=== PATIENT | male | born 1960 | race Caucasian/White ===

== ENCOUNTER 2022-03-11 14:01 | Emergency (ER) | payer OTHER, SELFPAY ==
[2022-03-11] VITALS (11 sets, daily range): BP systolic 93–107; BP diastolic 48–68; PULSE 85–93; RESP 14; TEMP 35.3; O2SAT 93–98; BMI 24.2
--- NOTE | 2022-03-11 14:07 | CRLHL7_ITS ---
For Patients: As a result of the Century Cures Act, medical imaging exams and procedure reports are released immediately into your electronic medical record. You may view this report before your referring provider. If you have questions, please contact your health care provider. INDICATION: Syncope TECHNIQUE: Single view chest. FINDINGS: The lungs are clear. The heart, mediastinum and pulmonary vessels are of normal size. There is no evidence of pleural disease. IMPRESSION: Negative chest. Dictated by Charline Tavarez MD @ 03/11/2022 3:31:23 PM (Electronically Signed)
--- NOTE | 2022-03-11 14:22 | ED.GENADULT ---
HPI - General Adult General Time Seen by Provider: 14: <Jovani Lopez MD - Last Filed: 03/12/22 12:17> Date Seen: 03/11/22 <Jovani Lopez MD - Last Filed: 03/12/22 12:17> Chief complaint: Nausea/Vomiting <Jovani Lopez MD - Last Filed: 03/12/22 12:17> Stated complaint: Flu like symptoms, almost passed out while driving <Jovani Lopez MD - Last Filed: 03/12/22 12:17> Time Seen by Provider: 03/11/22 14:03 <Jovani Lopez MD - Last Filed: 03/12/22 12:17> Source: patient <Jovani Lopez MD - Last Filed: 03/12/22 12:17> Mode of arrival: wheelchair <Jovani Lopez MD - Last Filed: 03/12/22 12:17> Limitations: physical limitation <Jovani Lopez MD - Last Filed: 03/12/22 12:17> History of Present Illness HPI narrative: Patient is a 62 year white male who is a type 2 diabetic, currently on glipizide and metformin. The patient was driving with his , said he felt sick in his stomach onset about noon. He was well up until that time. He does report that he ate anything unusual or had any other kind of exposures. He does report he has been very upset his stomach and he is vomiting and he had syncopal spell, loss control of bowel, did not have any postictal phase or seizure activity. He has been slightly pale since he denies any chest pain, shortness of breath, recent illness or cough. He has been vaccinated for COVID. He has had no chest pain, no leg swelling or edema. <Jovani Lopez MD - Last Filed: 03/12/22 12:17> Related Data Allergies/adverse reactions: Allergies Allergy/AdvReac Type Severity Reaction Status Date / Time sitagliptin [From Januvia] Allergy Verified 03/11/22 14:10 <Jovani Lopez MD - Last Filed: 03/12/22 12:17> Review of Systems Status of ROS: Reports: 10 or more systems reviewed and unremarkable except as noted in History and below <Jovani Lopez MD - Last Filed: 03/12/22 12:17> [facility] Social History: Social History Smoking Status: Never smoker Do you use any of these nicotine containing products: None Second hand tobacco smoke exposure: No How often do you have a drink containing alcohol: monthly or less How many standard drinks containing alcohol do you have on a typical day: 1 or 2 How often do you have six or more drinks on one occasion: Never AUDIT-C Alcohol total score: 1 Non-prescribed substance use: denies use service: No <Jovani Lopez MD - Last Filed: 03/12/22 12:17> Exam Narrative: Exam Narrative: Objective: Patient's vital signs unremarkable he is alert but he is pale HEENT is unremarkable pupils react to light extra pills intact mouth is dry Neck is supple Chest is clear Heart rhythm regular 2/6 systolic ejection murmur, occasional ectopic beat. Abdomen mildly tender over his epigastrium no rebound no peritonitis Extremities are no edema Neurologic nonfocal Skin is perfuse well in the extremities, warm and dry <Jovani Lopez MD - Last Filed: 03/12/22 12:17> Const: Vital Signs, click to edit/add: Vital Signs - 24 hr 03/11/22 14:10 03/11/22 14:20 03/11/22 14:47 Temperature 95.6 F L Pulse Rate 89 Pulse Rate [Pulse Oximeter] 93 Respiratory Rate Blood Pressure Blood Pressure [Le ft Upper Arm] 106/65 Pulse Oximetry 98 97 97 Oxygen Delivery Me thod Room Air 03/11/22 14:49 03/11/22 15:02 03/11/22 15:32 Temperature Pulse Rate 89 90 Pulse Rate [Pulse Oximeter] Respiratory Rate Blood Pressure 93/58 L 104/57 L 100/61 Blood Pressure [Le ft Upper Arm] Pulse Oximetry 97 96 Oxygen Delivery Me thod 03/11/22 16:02 03/11/22 17:05 03/11/22 16:03 Temperature 95.6 F L Pulse Rate 89 88 Pulse Rate [Pulse Oximeter] 93 Respiratory Rate 14 Blood Pressure 106/48 L Blood Pressure [Le ft Upper Arm] 106/65 Pulse Oximetry 93 97 Oxygen Delivery Me thod Room Air 03/11/22 16:32 03/11/22 17:02 Temperature Pulse Rate 85 Pulse Rate [Pulse Oximeter] Respiratory Rate 14 Blood Pressure 107/68 104/64 Blood Pressure [Le ft Upper Arm] Pulse Oximetry 95 Oxygen Delivery [facility] <Jovani Lopez MD - Last Filed: 03/12/22 12:17> Vital Signs, click to edit/add: Vital Signs - 24 hr 03/11/22 14:10 03/11/22 14:20 03/11/22 14:47 Temperature 95.6 F L Pulse Rate 89 Pulse Rate [Pulse Oximeter] 93 Respiratory Rate Blood Pressure Blood Pressure [Le ft Upper Arm] 106/65 Pulse Oximetry 98 97 97 Oxygen Delivery [facility] Room Air 03/11/22 14:49 03/11/22 15:02 03/11/22 15:32 Temperature Pulse Rate 89 90 Pulse Rate [Pulse Oximeter] Respiratory Rate Blood Pressure 93/58 L 104/57 L 100/61 Blood Pressure [Le ft Upper Arm] Pulse Oximetry 97 96 Oxygen Delivery Md thod 03/11/22 16:02 03/11/22 17:05 03/11/22 16:03 Temperature 95.6 F L Pulse Rate 89 88 Pulse Rate [Pulse Oximeter] 93 Respiratory Rate 14 Blood Pressure 106/48 L Blood Pressure [Le ft Upper Arm] 106/65 Pulse Oximetry 93 97 Oxygen Delivery [facility] Room Air 03/11/22 16:32 03/11/22 17:02 Temperature Pulse Rate 85 Pulse Rate [Pulse Oximeter] Respiratory Rate 14 Blood Pressure 107/68 104/64 Blood Pressure [Le ft Upper Arm] Pulse Oximetry 95 Oxygen Delivery [facility] <Jac Schofield MD - Last Filed: 03/11/22 16:51> Course Reevaluation(s) Reevaluation #1: Care discussed with Dr. Lopez, prior records reviewed. Briefly this is a 62-year-old male with history of diabetes who presents with abrupt onset nausea, epigastric pain, vomiting, and lightheadedness. Labs independently interpreted by me demonstrate leukocytosis which may be from the margin, elevated D-dimer to as well as hyperglycemia but no anion gap acidosis to suggest DKA. Hepatic function panel is normal, troponin negative, BNP normal. Urinalysis with trace leukocyte esterase, few bacteria, cells. COVID and influenza are negative. CT scan chest independently interpreted by me does not demonstrate any acute intrathoracic findings including pulmonary some or infiltrate. CT scan of the abdomen pelvis not show any acute obstruction or inflammatory change, lipase is ordered. <Jac Schofield MD - Last Filed: 03/11/22 16:51> Time: 16:00 <Jac Schofield MD - Last Filed: 03/11/22 16:51> Reevaluation #2: Radiology interpretation of CT scans reviewed, fluid-filled colon fluid-filled small-bowel related to coloenteritis which certainly could cause of patient's symptoms of abdominal pain, nausea. Would expect some diarrhea in the next 24 hours as well. Continue usual medications of follow-up care. <Jac Schofield MD - Last Filed: 03/11/22 16:51> Time: 16:50 <Jac Schofield MD - Last Filed: 03/11/22 16:51> Vital Signs Vital signs: Initial Vital Signs Temperature 95.6 F L 03/11/22 14:10 Temperature Source Temporal Artery Scan 03/11/22 14:10 Pulse Rate 93 03/11/22 14:10 Pulse Rhythm 03/11/22 14:10 Blood Pressure 106/65 03/11/22 14:10 Blood Pressure Mean 78 03/11/22 14:10 Blood Pressure Position Supine 03/11/22 14:10 Pulse Oximetry 98 03/11/22 14:10 Oxygen Delivery Method 03/11/22 14:10 Vital Signs Temperature 95.6 F L 03/11/22 14:10 Pulse Rate 93 03/11/22 14:10 Blood Pressure 106/65 03/11/22 14:10 Pulse Oximetry 98 03/11/22 14:10 Oxygen Delivery Method 03/11/22 14:10 Temperature 95.6 F L 03/11/22 17:05 Pulse Rate 93 03/11/22 17:05 Respiratory Rate 14 03/11/22 17:05 Blood Pressure 106/65 03/11/22 17:05 Pulse Oximetry 95 03/11/22 17:02 Oxygen Delivery Method 03/11/22 16:02 <Jovani Lopez MD - Last Filed: 03/12/22 12:17> Initial Vital Signs Temperature 95.6 F L 03/11/22 14:10 Temperature Source Temporal Artery Scan 03/11/22 14:10 Pulse Rate 93 03/11/22 14:10 Pulse Rhythm 03/11/22 14:10 Blood Pressure 106/65 03/11/22 14:10 Blood Pressure Mean 78 03/11/22 14:10 Blood Pressure Position Supine 03/11/22 14:10 Pulse Oximetry 98 03/11/22 14:10 Oxygen Delivery Method 03/11/22 14:10 Vital Signs Temperature 95.6 F L 03/11/22 14:10 Pulse Rate 93 03/11/22 14:10 Blood Pressure 106/65 03/11/22 14:10 Pulse Oximetry 98 03/11/22 14:10 Oxygen Delivery Method 03/11/22 14:10 Temperature 95.6 F L 03/11/22 17:05 Pulse Rate 93 03/11/22 17:05 Respiratory Rate 14 03/11/22 17:05 Blood Pressure 106/65 03/11/22 17:05 Pulse Oximetry 95 03/11/22 17:02 Oxygen Delivery Method 03/11/22 16:02 <Jac Schofield MD - Last Filed: 03/11/22 16:51> Medical Decision Making MDM Narrative Medical decision making narrative: 62-year-old white male diabetic with a likely vasovagal syncopal episode due to GI upset and nausea and vomiting. Patient appears to have a benign abdomen, will check his labs, IV fluid, IV Zofran. Disposition pending his labs and response to the medications and fluid. Suspect he has a GI illness that has caused his vasovagal syncope. He does not give symptoms of his seizure. He is diabetic so I think getting an EKG in ruling out coronary issues would be appropriate, will put him on a dragsaw operator as well. Addendum: The patient's blood sugars over 400 on a venous sample, patient will be given 5 units of subcu insulin, his troponin is 0, his D-dimer is elevated 2.9, therefore a chest CT with contrast will be done, he will do an abdominal pelvic without contrast given he had this abdominal pain today. The patient will hold onto his metformin for [address] scan. <Jovani Lopez MD - Last Filed: 03/12/22 12:17> Lab Data Labs: Lab Results 03/11/22 03/11/22 03/11/22 Range/Units 14:25 14:25 14:25 WBC 15.75 H (4.50-11.00) K/uL RBC 6.01 H (4.30-5.90) m/uL Hgb 17.3 (13.5-17.5) gm/dL Hct 49.1 (37.0-53.0) % MCV 82 (80-100) fL MCH 29 (26-34) pg MCHC 35 (32-36) gm/dL RDW Coeff of Diane 12.5 (11.5-15.5) % Plt Count 268 (140-440) K/uL Neut % (Auto) 86.3 H (42.0-72.0) % Lymph % (Auto) 6.8 L (20-44) % [place] % (Auto) 5.5 (0.0-11.0) % Eos % (Auto) 0.1 (0.0-7.0) % Baso % (Auto) 0.1 (0.0-3.0) % Neut # (Auto) 13.60 H (1.7-7.0) K/uL Lymph # (Auto) 1.10 (0.90-2.90) K/uL [place] # (Auto) 0.90 (0.00-0.90) K/UL Eos # (Auto) 0.00 (0.00-0.50) K/uL Baso # (Auto) 0.00 (0.00-0.30) K/uL D-Dimer Quant (PE/DVT) 0.90 H (0.00-0.50) ug/ml Sodium 134 L (135-149) mmol/L Potassium 4.4 (3.6-5.1) mmol/L Chloride 97 (96-114) mmol/L Carbon Dioxide 23 (20-32) mmol/L BUN 25 (7-30) mg/dL Creatinine 1.4 (0.5-1.5) mg/dL Estimated Creat Clear 48.10 Estimated GFR 56 ml/min Glucose 406 H* (60-115) mg/dL Calcium 9.5 (8.4-10.6) mg/dL Total Bilirubin 0.8 (0.1-1.5) mg/dL Direct Bilirubin 0.2 (0.0-0.5) mg/dL AST 30 (12-35) U/L ALT 27 (4-50) U/L Alkaline Phosphatase 79 (40-150) U/L Troponin I (0.01-0.04) ng/mL C-Reactive Protein < 0.5 L (0.5-1.0) mg/dL NT-Pro-B Natriuret Pep < 20 pg/mL Total Protein 8.3 (6.0-8.3) g/dL Albumin 5.1 H (3.3-5.0) g/dL Lipase (23-300) U/L Urine Color (Yellow) Urine Appearance (Clear) Urine pH (5.0-8.5) Ur Specific [place] (1.000-1.030) Urine Protein (Negative) Urine Glucose (UA) (Negative) Urine Ketones (Negative) Urine Blood (Negative) Urine Nitrite (Negative) Urine Bilirubin (Negative) Urine Urobilinogen (0.2-1.0) Ur Leukocyte Esterase (Negative) Urine RBC (0-2) Urine WBC (0-5) Ur Squamous Epith Cells (None-Few) Urine Bacteria (None) SARS-CoV-2 (PCR) (Negative) Influenza Type A (PCR) (Negative) Influenza Type B (PCR) (Negative) RSV (PCR) (Negative) POC Troponin I (0.01-0.04) ng/ml 03/11/22 03/11/22 03/11/22 Range/Units 14:25 14:27 15:25 WBC (4.50-11.00) K/uL RBC (4.30-5.90) m/uL Hgb (13.5-17.5) gm/dL Hct (37.0-53.0) % MCV (80-100) fL MCH (26-34) pg MCHC (32-36) gm/dL RDW Coeff of Diane (11.5-15.5) % Plt Count (140-440) K/uL Neut % (Auto) (42.0-72.0) % Lymph % (Auto) (20-44) % [place] % (Auto) (0.0-11.0) % Eos % (Auto) (0.0-7.0) % Baso % (Auto) (0.0-3.0) % Neut # (Auto) (1.7-7.0) K/uL Lymph # (Auto) (0.90-2.90) K/uL [place] # (Auto) (0.00-0.90) K/UL Eos # (Auto) (0.00-0.50) K/uL Baso # (Auto) (0.00-0.30) K/uL D-Dimer Quant (PE/DVT) (0.00-0.50) ug/ml Sodium (135-149) mmol/L Potassium (3.6-5.1) mmol/L Chloride (96-114) mmol/L Carbon Dioxide (20-32) mmol/L BUN (7-30) mg/dL Creatinine (0.5-1.5) mg/dL Estimated Creat Clear Estimated GFR ml/min Glucose (60-115) mg/dL Calcium (8.4-10.6) mg/dL Total Bilirubin (0.1-1.5) mg/dL Direct Bilirubin (0.0-0.5) mg/dL AST (12-35) U/L ALT (4-50) U/L Alkaline Phosphatase (40-150) U/L Troponin I (0.01-0.04) ng/mL C-Reactive Protein (0.5-1.0) mg/dL NT-Pro-B Natriuret Pep pg/mL Total Protein (6.0-8.3) g/dL Albumin (3.3-5.0) g/dL Lipase (23-300) U/L Urine Color Yellow (Yellow) Urine Appearance Slightly Cloudy A (Clear) Urine pH 5.5 (5.0-8.5) Ur Specific [place] 1.020 (1.000-1.030) Urine Protein Negative (Negative) Urine Glucose (UA) 1+ A (Negative) Urine Ketones Trace A (Negative) Urine Blood Negative (Negative) Urine Nitrite Negative (Negative) Urine Bilirubin Negative (Negative) Urine Urobilinogen 0.2 (0.2-1.0) Ur Leukocyte Esterase Trace A (Negative) Urine RBC 0-2 (0-2) Urine WBC 2-5 (0-5) Ur Squamous Epith Cells None (None-Few) Urine Bacteria Few A (None) SARS-CoV-2 (PCR) Negative SARS-CoV-2 (Negative) Influenza Type A (PCR) Negative PCR FLU A (Negative) Influenza Type B (PCR) Negative PCR FLU B (Negative) RSV (PCR) Negative PCR RSV (Negative) POC Troponin I 0.00 L (0.01-0.04) ng/ml 03/11/22 Range/Units 16:10 WBC (4.50-11.00) K/uL RBC (4.30-5.90) m/uL Hgb (13.5-17.5) gm/dL Hct (37.0-53.0) % MCV (80-100) fL MCH (26-34) pg MCHC (32-36) gm/dL RDW Coeff of Diane (11.5-15.5) % Plt Count (140-440) K/uL Neut % (Auto) (42.0-72.0) % Lymph % (Auto) (20-44) % [place] % (Auto) (0.0-11.0) % Eos % (Auto) (0.0-7.0) % Baso % (Auto) (0.0-3.0) % Neut # (Auto) (1.7-7.0) K/uL Lymph # (Auto) (0.90-2.90) K/uL [place] # (Auto) (0.00-0.90) K/UL Eos # (Auto) (0.00-0.50) K/uL Baso # (Auto) (0.00-0.30) K/uL D-Dimer Quant (PE/DVT) (0.00-0.50) ug/ml Sodium (135-149) mmol/L Potassium (3.6-5.1) mmol/L Chloride (96-114) mmol/L Carbon Dioxide (20-32) mmol/L BUN (7-30) mg/dL Creatinine (0.5-1.5) mg/dL Estimated Creat Clear Estimated GFR ml/min Glucose (60-115) mg/dL Calcium (8.4-10.6) mg/dL Total Bilirubin (0.1-1.5) mg/dL Direct Bilirubin (0.0-0.5) mg/dL AST (12-35) U/L ALT (4-50) U/L Alkaline Phosphatase (40-150) U/L Troponin I < 0.01 L (0.01-0.04) ng/mL C-Reactive Protein (0.5-1.0) mg/dL NT-Pro-B Natriuret Pep pg/mL Total Protein (6.0-8.3) g/dL Albumin (3.3-5.0) g/dL Lipase 14 L (23-300) U/L Urine Color (Yellow) Urine Appearance (Clear) Urine pH (5.0-8.5) Ur Specific [place] (1.000-1.030) Urine Protein (Negative) Urine Glucose (UA) (Negative) Urine Ketones (Negative) Urine Blood (Negative) Urine Nitrite (Negative) Urine Bilirubin (Negative) Urine Urobilinogen (0.2-1.0) Ur Leukocyte Esterase (Negative) Urine RBC (0-2) Urine WBC (0-5) Ur Squamous Epith Cells (None-Few) Urine Bacteria (None) SARS-CoV-2 (PCR) (Negative) Influenza Type A (PCR) (Negative) Influenza Type B (PCR) (Negative) RSV (PCR) (Negative) POC Troponin I (0.01-0.04) ng/ml <Jovani Lopez MD - Last Filed: 03/12/22 12:17> Lab Results 03/11/22 03/11/22 03/11/22 Range/Units 14:25 14:25 14:25 WBC 15.75 H (4.50-11.00) K/uL RBC 6.01 H (4.30-5.90) m/uL Hgb 17.3 (13.5-17.5) gm/dL Hct 49.1 (37.0-53.0) % MCV 82 (80-100) fL MCH 29 (26-34) pg MCHC 35 (32-36) gm/dL RDW Coeff of Diane 12.5 (11.5-15.5) % Plt Count 268 (140-440) K/uL Neut % (Auto) 86.3 H (42.0-72.0) % Lymph % (Auto) 6.8 L (20-44) % [place] % (Auto) 5.5 (0.0-11.0) % Eos % (Auto) 0.1 (0.0-7.0) % Baso % (Auto) 0.1 (0.0-3.0) % Neut # (Auto) 13.60 H (1.7-7.0) K/uL Lymph # (Auto) 1.10 (0.90-2.90) K/uL [place] # (Auto) 0.90 (0.00-0.90) K/UL Eos # (Auto) 0.00 (0.00-0.50) K/uL Baso # (Auto) 0.00 (0.00-0.30) K/uL D-Dimer Quant (PE/DVT) 0.90 H (0.00-0.50) ug/ml Sodium 134 L (135-149) mmol/L Potassium 4.4 (3.6-5.1) mmol/L Chloride 97 (96-114) mmol/L Carbon Dioxide 23 (20-32) mmol/L BUN 25 (7-30) mg/dL Creatinine 1.4 (0.5-1.5) mg/dL Estimated Creat Clear 48.10 Estimated GFR 56 ml/min Glucose 406 H* (60-115) mg/dL Calcium 9.5 (8.4-10.6) mg/dL Total Bilirubin 0.8 (0.1-1.5) mg/dL Direct Bilirubin 0.2 (0.0-0.5) mg/dL AST 30 (12-35) U/L ALT 27 (4-50) U/L Alkaline Phosphatase 79 (40-150) U/L Troponin I (0.01-0.04) ng/mL C-Reactive Protein < 0.5 L (0.5-1.0) mg/dL NT-Pro-B Natriuret Pep < 20 pg/mL Total Protein 8.3 (6.0-8.3) g/dL Albumin 5.1 H (3.3-5.0) g/dL Lipase (23-300) U/L Urine Color (Yellow) Urine Appearance (Clear) Urine pH (5.0-8.5) Ur Specific [place] (1.000-1.030) Urine Protein (Negative) Urine Glucose (UA) (Negative) Urine Ketones (Negative) Urine Blood (Negative) Urine Nitrite (Negative) Urine Bilirubin (Negative) Urine Urobilinogen (0.2-1.0) Ur Leukocyte Esterase (Negative) Urine RBC (0-2) Urine WBC (0-5) Ur Squamous Epith Cells (None-Few) Urine Bacteria (None) SARS-CoV-2 (PCR) (Negative) Influenza Type A (PCR) (Negative) Influenza Type B (PCR) (Negative) RSV (PCR) (Negative) POC Troponin I (0.01-0.04) ng/ml 03/11/22 03/11/22 03/11/22 Range/Units 14:25 14:27 15:25 WBC (4.50-11.00) K/uL RBC (4.30-5.90) m/uL Hgb (13.5-17.5) gm/dL Hct (37.0-53.0) % MCV (80-100) fL MCH (26-34) pg MCHC (32-36) gm/dL RDW Coeff of Diane (11.5-15.5) % Plt Count (140-440) K/uL Neut % (Auto) (42.0-72.0) % Lymph % (Auto) (20-44) % [place] % (Auto) (0.0-11.0) % Eos % (Auto) (0.0-7.0) % Baso % (Auto) (0.0-3.0) % Neut # (Auto) (1.7-7.0) K/uL Lymph # (Auto) (0.90-2.90) K/uL [place] # (Auto) (0.00-0.90) K/UL Eos # (Auto) (0.00-0.50) K/uL Baso # (Auto) (0.00-0.30) K/uL D-Dimer Quant (PE/DVT) (0.00-0.50) ug/ml Sodium (135-149) mmol/L Potassium (3.6-5.1) mmol/L Chloride (96-114) mmol/L Carbon Dioxide (20-32) mmol/L BUN (7-30) mg/dL Creatinine (0.5-1.5) mg/dL Estimated Creat Clear Estimated GFR ml/min Glucose (60-115) mg/dL Calcium (8.4-10.6) mg/dL Total Bilirubin (0.1-1.5) mg/dL Direct Bilirubin (0.0-0.5) mg/dL AST (12-35) U/L ALT (4-50) U/L Alkaline Phosphatase (40-150) U/L Troponin I (0.01-0.04) ng/mL C-Reactive Protein (0.5-1.0) mg/dL NT-Pro-B Natriuret Pep pg/mL Total Protein (6.0-8.3) g/dL Albumin (3.3-5.0) g/dL Lipase (23-300) U/L Urine Color Yellow (Yellow) Urine Appearance Slightly Cloudy A (Clear) Urine pH 5.5 (5.0-8.5) Ur Specific [place] 1.020 (1.000-1.030) Urine Protein Negative (Negative) Urine Glucose (UA) 1+ A (Negative) Urine Ketones Trace A (Negative) Urine Blood Negative (Negative) Urine Nitrite Negative (Negative) Urine Bilirubin Negative (Negative) Urine Urobilinogen 0.2 (0.2-1.0) Ur Leukocyte Esterase Trace A (Negative) Urine RBC 0-2 (0-2) Urine WBC 2-5 (0-5) Ur Squamous Epith Cells None (None-Few) Urine Bacteria Few A (None) SARS-CoV-2 (PCR) Negative SARS-CoV-2 (Negative) Influenza Type A (PCR) Negative PCR FLU A (Negative) Influenza Type B (PCR) Negative PCR FLU B (Negative) RSV (PCR) Negative PCR RSV (Negative) POC Troponin I 0.00 L (0.01-0.04) ng/ml 03/11/22 Range/Units 16:10 WBC (4.50-11.00) K/uL RBC (4.30-5.90) m/uL Hgb (13.5-17.5) gm/dL Hct (37.0-53.0) % MCV (80-100) fL MCH (26-34) pg MCHC (32-36) gm/dL RDW Coeff of Diane (11.5-15.5) % Plt Count (140-440) K/uL Neut % (Auto) (42.0-72.0) % Lymph % (Auto) (20-44) % [place] % (Auto) (0.0-11.0) % Eos % (Auto) (0.0-7.0) % Baso % (Auto) (0.0-3.0) % Neut # (Auto) (1.7-7.0) K/uL Lymph # (Auto) (0.90-2.90) K/uL [place] # (Auto) (0.00-0.90) K/UL Eos # (Auto) (0.00-0.50) K/uL Baso # (Auto) (0.00-0.30) K/uL D-Dimer Quant (PE/DVT) (0.00-0.50) ug/ml Sodium (135-149) mmol/L Potassium (3.6-5.1) mmol/L Chloride (96-114) mmol/L Carbon Dioxide (20-32) mmol/L BUN (7-30) mg/dL Creatinine (0.5-1.5) mg/dL Estimated Creat Clear Estimated GFR ml/min Glucose (60-115) mg/dL Calcium (8.4-10.6) mg/dL Total Bilirubin (0.1-1.5) mg/dL Direct Bilirubin (0.0-0.5) mg/dL AST (12-35) U/L ALT (4-50) U/L Alkaline Phosphatase (40-150) U/L Troponin I < 0.01 L (0.01-0.04) ng/mL C-Reactive Protein (0.5-1.0) mg/dL NT-Pro-B Natriuret Pep pg/mL Total Protein (6.0-8.3) g/dL Albumin (3.3-5.0) g/dL Lipase 14 L (23-300) U/L Urine Color (Yellow) Urine Appearance (Clear) Urine pH (5.0-8.5) Ur Specific [place] (1.000-1.030) Urine Protein (Negative) Urine Glucose (UA) (Negative) Urine Ketones (Negative) Urine Blood (Negative) Urine Nitrite (Negative) Urine Bilirubin (Negative) Urine Urobilinogen (0.2-1.0) Ur Leukocyte Esterase (Negative) Urine RBC (0-2) Urine WBC (0-5) Ur Squamous Epith Cells (None-Few) Urine Bacteria (None) SARS-CoV-2 (PCR) (Negative) Influenza Type A (PCR) (Negative) Influenza Type B (PCR) (Negative) RSV (PCR) (Negative) POC Troponin I (0.01-0.04) ng/ml <Jac Schofield MD - Last Filed: 03/11/22 16:51> Discharge Plan Discharge Clinical Impression: Syncope, Nausea and vomiting <Jovani Lopez MD - Last Filed: 03/12/22 12:17> Patient Disposition: Home w/ Parent or Adult <Jovani Lopez MD - Last Filed: 03/12/22 12:17> Condition: Improved <Jovani Lopez MD - Last Filed: 03/12/22 12:17> Instructions: Acute Abdominal Pain (DC), Near Syncope (ED) <Jovani Lopez MD - Last Filed: 03/12/22 12:17> Additional Instructions: Rest, light activity, would hold the metformin for least 24 hours, then may restart. He can continue his glipizide. Continue to monitor 3 to 4 times a day blood sugars, update regular doctor in the next 48 hours. Adequate fluid intake. No driving for the next couple of days until follow-up with primary care. <Jovani Lopez MD - Last Filed: 03/12/22 12:17> Activity Level: Light activity <Jovani Lopez MD - Last Filed: 03/12/22 12:17> Light activity <Jac Schofield MD - Last Filed: 03/11/22 16:51> Discharge Diet: Regular <Jovani Lopez MD - Last Filed: 03/12/22 12:17> Regular <Jac Schofield MD - Last Filed: 03/11/22 16:51> Follow Up/Referrals: Beto Kim MD [Primary Care Provider] - <Jovani Lopez MD - Last Filed: 03/12/22 12:17> Stand Alone Forms: [facility] Info Instructions <Jovani Lopez MD - Last Filed: 03/12/22 12:17>
[2022-03-11] MEDS: 0.9 % SODIUM CHLORIDE 1000 ml 1,000 ML 6000 ML IV (14:25)
[2022-03-11] MEDS: ONDANSETRON 2 MG/ML inj 4 MG IVP (14:28)
[2022-03-11 14:39] LABS: Basophils Percent Auto 0.1 % (0.0-3.0); Eosinophils Percent Auto 0.1 % (0.0-7.0); Hematocrit 49.1 % (37.0-53.0); Hemoglobin* 17.3 gm/dL (13.5-17.5); Immature Granulocytes Pct Auto 1.2 %; Lymphocytes Percent Auto 6.8 % (20-44); Mean Corpuscular HGB Conc 35 gm/dL (32-36); Mean Corpuscular Hemoglobin 29 pg (26-34); Mean Corpuscular Volume 82 fL (80-100); Monocytes Percent Auto 5.5 % (0.0-11.0); Neutrophils Percent Auto 86.3 % (42.0-72.0); Platelet Count* 268 K/uL (140-440); RDW Coefficient of Variation % 12.5 % (11.5-15.5); Red Blood Count 6.01 m/uL (4.30-5.90); White Blood Count* 15.75 K/uL (4.50-11.00)
[2022-03-11 14:47] LABS: Slide Review Reflex No
[2022-03-11 14:54] LABS: Albumin* 5.1 g/dL (3.3-5.0); Chloride* 97 mmol/L (96-114); Sodium* 134 mmol/L (135-149)
[2022-03-11 14:55] LABS: Potassium* 4.4 mmol/L (3.6-5.1)
[2022-03-11 14:57] LABS: Alkaline Phosphatase* 79 U/L (40-150); Aspartate Amino Transferase* 30 U/L (12-35); Bilirubin Direct* 0.2 mg/dL (0.0-0.5); Bilirubin Total* 0.8 mg/dL (0.1-1.5); Blood Urea Nitrogen* 25 mg/dL (7-30); Carbon Dioxide* 23 mmol/L (20-32); Creatinine* 1.4 mg/dL (0.5-1.5); Estimated Glomerular Filt Rate 56 ml/min; Total Protein* 8.3 g/dL (6.0-8.3)
[2022-03-11 14:58] LABS: Alanine Aminotransferase* 27 U/L (4-50); Calcium* 9.5 mg/dL (8.4-10.6)
[2022-03-11 15:11] LABS: C Reactive Protein* < 0.5 mg/dL (0.5-1.0); Glucose* 406 mg/dL (60-115); NT Pro B Type NatriureticPept* < 20 pg/mL
--- NOTE | 2022-03-11 15:14 | CRLHL7_ITS ---
For Patients: As a result of the Century Cures Act, medical imaging exams and procedure reports are released immediately into your electronic medical record. You may view this report before your referring provider. If you have questions, please contact your health care provider. INDICATION: SOB. Rule out pulmonary embolism. TECHNIQUE: Volumetric helical scanning of the thorax was performed during infusion of 100 cc of Omnipaque 350 contrast material IV, timing optimized for pulmonary arterial opacification. Coronal and sagittal reconstructions were obtained. COMPARISON: None. FINDINGS: The images are of acceptable quality and demonstrate uniform vascular enhancement within the pulmonary arteries. No pulmonary arterial filling defect is identified. The heart size is normal. The lungs are clear. There is no significant airway abnormality. No pleural effusion is demonstrated. There is no mediastinal or hilar adenopathy. Images of the upper abdomen are unremarkable. IMPRESSION: 1. Negative for pulmonary embolism and pneumonia. 2. Coronary artery disease. Please note that all CT scans at this facility use dose modulation, iterative reconstruction, and/or weight-based dosing when appropriate to reduce radiation dose to as low as reasonably achievable. Dictated by David Giles MD @ 03/11/2022 4:40:02 PM (Electronically Signed)
--- NOTE | 2022-03-11 15:14 | CRLHL7_ITS ---
For Patients: As a result of the Century Cures Act, medical imaging exams and procedure reports are released immediately into your electronic medical record. You may view this report before your referring provider. If you have questions, please contact your health care provider. Indication: Abdominal pain Technique: Noncontrast CT abdomen and Comparison: Abdomen pelvis 12/19/20 Findings: Heart size mildly enlarged. There is no pericardial effusion. Coronary artery calcification. 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 Pancreas otherwise unremarkable spleen unremarkable adrenal glands unremarkable. Small nonobstructing left renal calculus there is no hydronephrosis Increased attenuation of the central mesentery probably related to mesenteric panniculitis without change. Prostate gland mildly enlarged tiny left fat containing inguinal hernia. Mild wall thickening of the urinary bladder the colon is fluid-filled there is minimal diverticulosis. Small-bowel is partially fluid filled there is no obstruction No suspicious bony lesions are seen. Impression: 1. Diffuse fluid-filled colon in partial fluid-filled small bowel could be related to coloenteritis. 2. 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 3. Enlarged prostate gland wall thickening urinary bladder related to component of bladder outlet obstruction. Please note that all CT scans at this facility use dose modulation, iterative reconstruction, and/or weight-based dosing when appropriate to reduce radiation dose to as low as reasonably achievable. Dictated by Charline Tavarez MD @ 03/11/2022 4:45:14 PM (Electronically Signed)
[2022-03-11 15:20] LABS: PCR FLU A Negative PCR FLU A (Negative); PCR FLU B Negative PCR FLU B (Negative); PCR RSV Negative PCR RSV (Negative)
[2022-03-11 15:24] LABS: SARS PCR* Negative SARS-CoV-2 (Negative)
[2022-03-11] MEDS: 0.9 % SODIUM CHLORIDE 1000 ml 1,000 ML IV (15:30)
[2022-03-11 15:41] LABS: Appearance Urine Slightly Cloudy (Clear); Bilirubin Urine Negative (Negative); Blood Urine Negative (Negative); Color Urine Yellow (Yellow); Glucose Urine 1+ (Negative); Ketones Urine Trace (Negative); Leukocyte Esterase Urine Trace (Negative); Nitrite Urine Negative (Negative); Protein Urine Negative (Negative); Urobilinogen Urine 0.2 (0.2-1.0); pH Urine 5.5 (5.0-8.5)
[2022-03-11 16:08] LABS: RBC Urine 0-2 (0-2)
[2022-03-11 16:09] LABS: Bacteria Urine Few
[2022-03-11 16:39] LABS: Lipase* 14 U/L (23-300)
[2022-03-11 16:43] LABS: Troponin I* < 0.01 ng/mL (0.01-0.04)
== END 2022-03-11 17:05 | disposition home or self-care (01) ==
PROVIDERS: Family Medicine; Emergency Provider Family Medicine; PCP Family Medicine
DX: R55 Syncope and collapse (principal); R11.2 Nausea with vomiting, unspecified
CPT/HCPCS: 36415; 71045; 71260; 74176; 80048; 80076; 81001; 82962; 83690; 83880; 84484; 85025; 85379; 86140; 87086; 87502; 87634; 87635; 93005; 94761; 96374; 99284; 99285; J2405; J7030; Q9967

== ENCOUNTER 2024-01-02 19:51 | Emergency (ER) | payer OTHER, SELFPAY ==
[2024-01-02 20:03] VITALS: BP 132/71; PULSE 76; RESP 18; TEMP 36.7; O2SAT 95; BMI 31.2
--- NOTE | 2024-01-02 20:25 | CRLHL7_ITS ---
For Patients: As a result of the Cures Act, medical imaging exams and procedure reports are released immediately into your electronic medical record. You may view this report before your referring provider. If you have questions, please contact your health care provider. INDICATION: Cough TECHNIQUE: Chest 2 views. COMPARISON: 03/11/2022 FINDINGS: Cardiovascular and mediastinum: Heart size is normal. Unremarkable mediastinum. Lungs and pleural spaces: Lungs are clear. No sign of infiltrate or mass. No sign of pleural effusion. No pneumothorax. Bones and soft tissues: No significant findings. IMPRESSION: No acute findings and no significant changes from the prior exam. Dictated by Jennifer Ledezma MD @ 01/02/2024 8:41:14 PM (Electronically Signed)
--- NOTE | 2024-01-02 21:31 | ED.GENADULT ---
HPI - General Adult General Date Seen: 01/02/24 Chief complaint: Cough Stated complaint: cough, congestion Time Seen by Provider: 01/02/24 20:19 Source: patient Mode of arrival: ambulatory Limitations: no limitations History of Present Illness HPI narrative: Patient is a 63-year-old male with past medical history noted for hypertension, diabetes, high cholesterol. He has had a little bit of a dry cough for several months now, he had attributed [place]. Over the past 6 days he has had a different problem with cough, congestion, sore throat, headache and fatigue. He has not had a fever that he knows of. His primary complaint now is of cough. He does believe his tetanus and pertussis are up-to-date. He feels maybe a little short of breath, no wheezing, no chest pain. No smoking history, no history of asthma or COPD. Cough is keeping him up at night. He did a COVID test at home which was negative. No specific ill exposures although they just got back from a trip to [place]. Related Data Home Medications ?Medication ?Instructions ?Recorded ?Confirmed atenolol 25 mg tablet 25 mg PO DAILY 01/02/24 01/02/24 citalopram 20 mg tablet 20 mg PO DAILY 01/02/24 01/02/24 dapagliflozin propanediol 10 mg 10 mg PO DAILY 01/02/24 01/02/24 tablet (Farxiga) glipizide 10 mg tablet 10 mg PO BID 01/02/24 01/02/24 insulin glargine-yfgn 100 unit/mL 28 unit subcut QPM 01/02/24 01/02/24 (3 mL) subcutaneous pen lisinopril 20 2 tab PO DAILY 01/02/24 01/02/24 mg-hydrochlorothiazide 25 mg tablet metformin 500 mg tablet,extended 2,000 mg PO DAILY 01/02/24 01/02/24 release 24 hr nortriptyline 25 mg capsule mg PO 01/02/24 simvastatin 20 mg tablet 20 mg PO QPM 01/02/24 01/02/24 tadalafil 10 mg tablet mg PO 01/02/24 Allergies Allergy/AdvReac Type Severity Reaction Status Date / [facility] Allergy Verified 03/11/22 14:10 Review of Systems Status of ROS: Reports: 6 or more systems reviewed and unremarkable except as noted in History and below [facility] Social History Smoking Status: Never smoker Do you use any of these nicotine containing products: None Second hand tobacco smoke exposure: No How often do you have a drink containing alcohol: monthly or less How many standard drinks containing alcohol do you have on a typical day: 1 or 2 How often do you have six or more drinks on one occasion: Never AUDIT-C Alcohol total score: 1 Non-prescribed substance use: denies use service: No Exam Const: Vital Signs, click to edit/add: Vital Signs - 24 hr 01/02/24 20:03 Temperature 98.0 F Pulse Rate [Pulse Oximeter] 76 Respiratory Rate 18 Blood Pressure [Ri ght Upper Arm] 132/71 Pulse Oximetry 95 Oxygen Delivery Me thod Room Air Course Course ED Course: I did a chest x-ray, by my review this was negative for infiltrate. Final radiology report as follows:Patient: DEREJE TUBBS Facility: [facility] Site . Site : [id number] Study: XRay-Chest 2V-01/02/2024 8:34:23 PM Ordering Physician: La Rudd Final Report: INDICATION: Cough TECHNIQUE: Chest 2 views. COMPARISON: 03/11/2022 FINDINGS: Cardiovascular and mediastinum: Heart size is normal. Unremarkable mediastinum. Lungs and pleural spaces: Lungs are clear. No sign of infiltrate or mass. No sign of pleural effusion. No pneumothorax. Bones and soft tissues: No significant findings. IMPRESSION: No acute findings and no significant changes from the prior exam. Dictated by Jennifer Ledezma MD @ 01/02/2024 8:41:14 PM I did send off a pertussis testing as well. Given recent increase in cases of pertussis as well as atypical pneumonia, I am going to cover him with azithromycin with his comorbidities. I have also given him a prescription for a short course of prednisone. He declines anything for cough this time. Discussed with him that this more chronic cough should be recheck with his primary doctor unless it completely resolves over the next week or so. For worsening symptoms, high fevers, shaking chills, vomiting, shortness of breath, chest pain or other new symptoms, return at any time for re-evaluation. Otherwise, ibuprofen or Tylenol if needed, rest, hydration etcetera. Vital Signs Vital signs: Initial Vital Signs Temperature 98.0 F 01/02/24 20:03 Temperature Source Temporal Artery Scan 01/02/24 20:03 Pulse Rate 76 01/02/24 20:03 Pulse Rhythm Regular 01/02/24 20:03 Respiratory Rate 18 01/02/24 20:03 Blood Pressure 132/71 01/02/24 20:03 Blood Pressure Mean 91 01/02/24 20:03 Blood Pressure Position Sitting 01/02/24 20:03 Pulse Oximetry 95 01/02/24 20:03 Oxygen Delivery Method Room Air 01/02/24 20:03 Vital Signs Temperature 98.0 F 01/02/24 20:03 Pulse Rate 76 01/02/24 20:03 Respiratory Rate 18 01/02/24 20:03 Blood Pressure 132/71 01/02/24 20:03 Pulse Oximetry 95 01/02/24 20:03 Oxygen Delivery Method Room Air 01/02/24 20:03 Temperature 98.0 F 01/02/24 20:03 Pulse Rate 76 01/02/24 20:03 Respiratory Rate 18 01/02/24 20:03 Blood Pressure 132/71 01/02/24 20:03 Pulse Oximetry 95 01/02/24 20:03 Oxygen Delivery Method Room Air 01/02/24 20:03 Discharge Plan Discharge Clinical Impression: Upper respiratory infection Patient Disposition: Home, Self-Care Condition: Stable Instructions: Upper Respiratory Infection (DC) Additional Instructions: Your chest x-ray does not show any evidence of bacterial pneumonia. I have given you a prescription for azithromycin to cover for possible atypical pneumonia as well as prednisone, to help with inflammation in the lungs. If you continue to worsen, develops high fevers, shortness of breath, or other worsening systemic symptoms, return any time for re-evaluation. Otherwise, if you do not improve over the next week, or if your more chronic cough persists, please follow-up with your primary doctor for recheck. Prescriptions: No Action glipizide 10 mg tablet 10 mg PO BID atenolol 25 mg tablet 25 mg PO DAILY nortriptyline 25 mg capsule PO citalopram 20 mg tablet 20 mg PO DAILY simvastatin 20 mg tablet 20 mg PO QPM lisinopril-hydrochlorothiazide 20-25 mg tablet 2 tab PO DAILY metformin 500 mg tablet extended release 24 hr 2,000 mg PO DAILY tadalafil 10 mg tablet PO dapagliflozin propanediol [Farxiga] 10 mg tablet 10 mg PO DAILY insulin glargine-yfgn 100 unit/mL (3 mL) insulin pen 28 unit subcut QPM Follow Up/Referrals: Beto Kim MD [Primary Care Provider] - Stand Alone Forms: [facility] Info Instructions
[2024-01-05 15:34] LABS: B. pertussis/parapertus Source Not Provided; Bordetella parapertussis PCR Not Detected; Bordetella pertussis by PCR Not Detected
== END 2024-01-02 21:27 | disposition home or self-care (01) ==
LOC: ED 21:23
PROVIDERS: Emergency Provider Emergency Medicine; PCP Family Medicine
DX: J06.9 Acute upper respiratory infection, unspecified (principal)
CPT/HCPCS: 36415; 71046; 99283; 99284